=== PATIENT | female | born 1950 | race Caucasian/White ===

== ENCOUNTER 2020-12-16 14:12 | Outpatient (REF) | payer OTHER, SELFPAY | END 2020-12-16 14:13 | disposition home or self-care (01) | LOC: HO.SCI 14:12 | PROVIDERS: Visit Provider Psychiatry & Neurology Neurology | DX: Z13.89 Encounter for screening for other disorder (principal) ==

== ENCOUNTER 2020-12-17 18:08 | Outpatient (REF) | payer OTHER, SELFPAY ==
--- NOTE | ~2020-12-17 | MR_ITS ---
MR ANGIOGRAPHY BRAIN WITHOUT CONTRAST CLINICAL INFORMATION: TIA. COMPARISON: None available. TECHNIQUE: A noncontrast [id number] MRA of the campo of [place] is obtained. Vascular post-processing, including 2-dimensional and 3-dimensional reformatted images were created and reviewed on an independent workstation under concurrent physician supervision. Stenoses are graded per criteria similar to NASCET. FINDINGS: The anterior and posterior intracranial arterial circulations are widely patent without significant arterial stenoses and without acute arterial occlusions. There are no aneurysms and there are no high flow vascular malformations. 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 MR/MR angio head wo con IMPRESSION: Unremarkable MRA of the head.
== END 2020-12-17 18:09 | disposition home or self-care (01) ==
LOC: HO.MRI 18:08
PROVIDERS: PCP Internal Medicine; Visit Provider Psychiatry & Neurology Neurology
DX: G45.9 Transient cerebral ischemic attack, unspecified (principal)
CPT/HCPCS: 70544